=== PATIENT | male | born 1955 | race Caucasian/White ===

== ENCOUNTER 2018-07-03 14:11 | Inpatient (IN) | payer SELFPAY ==
[2018-07-03 16:09] LABS: ADD MAN DIFF? NO
[2018-07-03] MEDS: morphine 4 MG/ML VIAL IV (16:10)
[2018-07-03] MEDS: ONDANSETRON 4 MG INJ IV (16:10)
[2018-07-03] MEDS: SOD CHLORIDE 0.9% 1,000 ML IV (16:11)
[2018-07-03 16:14] LABS: ABNORMAL IP MESSAGE 1; HEMATOCRIT 15.3 % (42.0-52.0); MEAN CORPUSCULAR HEMOGLOBIN 29.3 pg (29.0-33.0); MEAN CORPUSCULAR VOLUME 91.6 fl (82.0-101.0); MEAN PLATELET VOLUME 9.7 fl (7.4-10.4); NUCLEATED RED BLOOD CELLS% 0.8 /100WBC (0.0-0.0); PLATELET COUNT 225 10^3/UL (140-415); POSITIVE DIFF @See below; RED BLOOD COUNT 1.67 10^6/ul (4.70-6.10); RED CELL DISTRIBUTION WIDTH 14.7 % (11.5-14.5)
[2018-07-03 16:14] LABS: WHITE BLOOD COUNT 16.4 10^3/ul (4.8-10.8)
[2018-07-03 16:29] LABS: INR 1.09; PROTIME 14.2 Sec (11.9-14.9); PT RATIO 1.1
[2018-07-03 16:34] LABS: ALANINE AMINOTRANSFERASE 37 IU/L (13-69); ALBUMIN 3.2 g/dl (3.3-4.9); ALBUMIN/GLOBULIN RATIO 1.23; ALKALINE PHOSPHATASE 54 IU/L (42-121); AMYLASE 53 U/L (11-123); ANION GAP 7 (5-13); ASPARTATE AMINO TRANSFERASE 24 IU/L (15-46); BILIRUBIN,INDIRECT 0.2 mg/dl (0-1.1); BILIRUBIN,TOTAL 0.2 mg/dl (0.2-1.3); BLOOD UREA NITROGEN 27 mg/dl (7-20); CALCIUM 8.6 mg/dl (8.4-10.2); CARBON DIOXIDE 21 mmol/L (21-31); CHLORIDE 111 mmol/L (97-110); Estimated GFR > 60 mL/min (>60); GLUCOSE 139 mg/dl (70-220); LIPASE 32 U/L (23-300); POTASSIUM 4.3 mmol/L (3.5-5.1); SODIUM 139 mmol/L (135-144)
[2018-07-03 16:35] LABS: ETHANOL < 10.0 mg/dl (0-0); TOTAL PROTEIN 5.8 g/dl (6.1-8.1)
[2018-07-03 16:39] LABS: HEMOGLOBIN 4.9 g/dl (14.0-18.0)
[2018-07-03 16:44] LABS: TROPONIN-I < 0.012 ng/ml (0.000-0.120)
[2018-07-03] MEDS: IOHEXOL 300MG/ML 150 ML BTL (17:10)
[2018-07-03] MEDS: SOD CHLORIDE 0.9% 100 ML (17:10)
[2018-07-03 17:19] LABS: ANISOCYTOSIS 1+ (0-0); BAND NEUTROPHILS #M 1.1 10^3/ul (0.0-0.6); BAND NEUTROPHILS % (M) 7 % (0-4); BASOPHIL #M 0.1 10^3/ul (0.0-0.0); BASOPHILS % (M) 1 % (0-2); EOSINOPHILS % (M) 1 % (0-7); GIANT THROMBO% (M) 2 % (0-0); LYMPHOCYTES #M 0.9 10^3/ul (0.8-2.9); LYMPHOCYTES % (M) 6 % (15-51); MICROCYTOSIS 1+ (0-0); MYELOCYTES #M 0.4 10^3/ul (0.0-0.0); MYELOCYTES % (M) 3 % (0-0); PLATELET ESTIMATE NORMAL; POIKILOCYTOSIS 1+ (0-0); POLYCHROMASIA 2+ (0-0); SEG NEUT #M 13.6 10^3/ul (1.6-7.5); SEGMENTED NEUTROPHILS (M) % 82 % (39-77); SMUDGE%M 20 % (0-0)
[2018-07-03 17:25] LABS: RETICULOCYTE COUNT # 0.059 X10^6 (0.020-0.110); RETICULOCYTE COUNT % 4.5 % (0.5-1.5)
[2018-07-03 17:25] LABS: RETICULOCYTE RBC 1.32
[2018-07-03] MEDS ORDERED: ONDANSETRON 4 MG INJ IV (17:30)
[2018-07-03] MEDS ORDERED: ACETAMINOPHEN 325 MG TAB PO (17:30)
[2018-07-03 17:44] LABS: LACTATE DEHYDROGENASE 286 IU/L (313-618)
[2018-07-03 17:47] LABS: IRON < 10 ug/dl (35-150)
[2018-07-03 17:54] LABS: TOTAL IRON BINDING CAPACITY 330 ug/dl (241-421)
[2018-07-03 18:20] LABS: FERRITIN 7.4 ng/ml (11.1-264.0)
[2018-07-03] MEDS ORDERED: morphine 2 MG INJ IV (19:00)
[2018-07-03] MEDS ORDERED: NACL 0.9% 3 ML SYG IV (19:00)
[2018-07-03] MEDS: PANTOPRAZOLE 40 MG INJ IV (19:05)
[2018-07-03 20:57] LABS: IMMEDIATE SPIN CROSSMATCH 1 4
[2018-07-04 06:06] LABS: ADD MAN DIFF? NO
[2018-07-04 06:21] LABS: ABNORMAL IP MESSAGE 1; BASOPHILS % 0.2 % (0.0-2.0); EOSINOPHILS # 0.1 10^3/ul (0.0-0.5); EOSINOPHILS % 0.6 % (0.0-7.0); HEMATOCRIT 17.5 % (42.0-52.0); LYMPHOCYTES # 1.9 10^3/ul (0.8-2.9); LYMPHOCYTES % 19.7 % (15.0-51.0); MEAN CORPUSCULAR HEMOGLOBIN 29.2 pg (29.0-33.0); MEAN CORPUSCULAR HGB CONC 32.6 g/dl (32.0-37.0); MEAN CORPUSCULAR VOLUME 89.7 fl (82.0-101.0); MEAN PLATELET VOLUME 10.4 fl (7.4-10.4); MONOCYTE # 0.8 10^3/ul (0.3-0.9); MONOCYTES % 8.4 % (0.0-11.0); NEUTROPHIL # 6.8 10^3/ul (1.6-7.5); NEUTROPHILS % 70.3 % (39.0-77.0); NUCLEATED RED BLOOD CELLS # 0.2 10^3/ul (0.0-0.0); PLATELET COUNT 176 10^3/UL (140-415); POSITIVE DIFF @See below; RED BLOOD COUNT 1.95 10^6/ul (4.70-6.10); RED CELL DISTRIBUTION WIDTH 14.6 % (11.5-14.5)
[2018-07-04 06:21] LABS: WHITE BLOOD COUNT 9.7 10^3/ul (4.8-10.8)
[2018-07-04] MEDS: PANTOPRAZOLE 40 MG INJ IV (06:50)
[2018-07-04 06:53] LABS: HEMOGLOBIN 5.7 g/dl (14.0-18.0)
[2018-07-04 07:13] LABS: ALANINE AMINOTRANSFERASE 35 IU/L (13-69); ALBUMIN 2.4 g/dl (3.3-4.9); ALBUMIN/GLOBULIN RATIO 1.09; ALKALINE PHOSPHATASE 39 IU/L (42-121); ANION GAP 2 (5-13); ASPARTATE AMINO TRANSFERASE 21 IU/L (15-46); BILIRUBIN,INDIRECT 0.2 mg/dl (0-1.1); BILIRUBIN,TOTAL 0.2 mg/dl (0.2-1.3); BLOOD UREA NITROGEN 22 mg/dl (7-20); CALCIUM 8.2 mg/dl (8.4-10.2); CARBON DIOXIDE 25 mmol/L (21-31); CHLORIDE 113 mmol/L (97-110); CREATININE 0.86 mg/dl (0.61-1.24); Estimated GFR > 60 mL/min (>60); GLUCOSE 102 mg/dl (70-220); POTASSIUM 4.5 mmol/L (3.5-5.1); SODIUM 140 mmol/L (135-144); TOTAL PROTEIN 4.6 g/dl (6.1-8.1)
[2018-07-04] MEDS: SOD CHLORIDE 0.9% 250 ML IV* (10:00)
[2018-07-04] MEDS: SOD FERRIC GLUC COMPLX 125 MG in SOD CHLORIDE 0.9% 100 ML IVPB (13:21)
[2018-07-04] MEDS: FUROSEMIDE 40 MG INJ IV (16:35)
[2018-07-04] MEDS: PANTOPRAZOLE IV 80 MG in SOD CHLORIDE 0.9% 100 ML IV (16:59)
[2018-07-04] MEDS: SUCRALFATE (100 MG/ML) 10ML CUP GTB ×2 (16:59→20:19)
[2018-07-04 18:09] LABS: HEMOGLOBIN 9.1 g/dl (14.0-18.0)
[2018-07-05] MEDS: PANTOPRAZOLE IV 80 MG in SOD CHLORIDE 0.9% 100 ML IV ×2 (03:14→12:00)
[2018-07-05] MEDS ORDERED: ETOMIDATE 20 MG INJ (07:00)
[2018-07-05] MEDS ORDERED: PROPOFOL 200 MG INJ (07:00)
[2018-07-05] MEDS: SUCRALFATE (100 MG/ML) 10ML CUP GTB ×3 (09:00→18:31)
[2018-07-05] MEDS: LIDOCAINE 2% (SDV) 5 ML INJ (10:06)
[2018-07-05] MEDS: PROPOFOL 40 ML (10:06)
[2018-07-05] MEDS: FENTAnyl 50 MCG/ML VIAL (10:06)
[2018-07-05] MEDS: SOD CHLORIDE 0.9% 500 ML IV (10:41)
[2018-07-05] MEDS: SOD FERRIC GLUC COMPLX 125 MG in SOD CHLORIDE 0.9% 100 ML IVPB (13:40)
[2018-07-05] MEDS ORDERED: PANTOPRAZOLE 40 MG INJ IV (18:00)
[2018-07-06 13:37] LABS: TRANSFERRIN 266 mg/dL (188-341)
== END 2018-07-05 18:40 | disposition home or self-care (01) | DRG 378 ==
LOC: E/R 14:11 → 6WM 17:27
PROC: 0DB68ZX Excision of Stomach, Via Natural or Artificial Opening Endoscopic, Diagnostic (ICD-10-PCS; principal; 2018-07-05 09:06)
PROC: 30233N1 Transfusion of Nonautologous Red Blood Cells into Peripheral Vein, Percutaneous Approach (ICD-10-PCS; 2018-07-05 09:06)
DX: K29.01 Acute gastritis with bleeding (principal); D62 Acute posthemorrhagic anemia; K44.9 Diaphragmatic hernia without obstruction or gangrene
CPT/HCPCS: 36415; 36430; 71045; 74177; 80053; 80307; 82150; 82728; 83036; 83540; 83615; 83690; 84466; 84484; 85014; 85018; 85025; 85045; 85610; 85730; 86850; 86900; 86901; 86920; 87040-91; 87086; 93005; 96361; 96374; 96375; 99291-25